=== PATIENT | female | born 1950 | race Caucasian/White ===

== ENCOUNTER 2018-03-28 06:15 | Day surgery (SDC) | payer MEDICARE, OTHER ==
[~2018-03-28] VITALS: Ht 162.6 cm; Wt 81.8 kg
[~2018-03-28 06:15] MED LIST: CYCLOBENZAPRINE10 MG PO; FISH OIL500 M1 PO; MELOXICAM15 MG PO; NORCO 5-325 TA1 EACH PO; WOMEN'S BIOMUL1 EACH PO
[2018-03-28] MEDS ORDERED: LEVOTHYROXINE50 MCG PO (06:37)
[2018-03-28] MEDS ORDERED: LISINOPRIL10 MG PO (06:37)
--- NOTE | 2018-03-28 08:19 | NUR ---
03/28/18 0819 Stacey Brand 0806- PT ARRIVES TO PACU ON 6L VIA MASK. OXYGEN SAT HIGH 90'S TO 100% ON THIS. PT IS ALERT AND ANSWER QUESTIONS APPROPRIATELY. PT IS DROWSY AND FALLS BACK TO SLEEP INSTANTLY WHEN NOT BEING TALKED TO. 0808- OXYGEN TURNED OFF. OXYGEN SAT MID TO HIGH 90'S ON RA. 0816- PT TURNED HERSELF TO HER BACK. PT REPORTS NO NAUSEA, PAIN, OR DIZZINESS.
--- NOTE | 2018-03-28 10:03 | OR ---
[facility] [address], [place] [address] Signed DATE OF OPERATION: 03/28/2018 SURGEON: Jodi Li MD PREOPERATIVE DIAGNOSIS: Maternal grandfather with colon cancer in his 80s. POSTOPERATIVE DIAGNOSES: 1. 4 mm polyps in distal right colon x1, 65 cm x1, 8 cm x4, and anus/6 cm x 1. 2. Minimal sigmoid diverticulosis. 3. [id number] internal hemorrhoids. PROCEDURE: Colonoscopy with hot biopsy. ESTIMATED BLOOD LOSS: None. INDICATIONS: Manolo is a 67-year-old lady who was asked to see me for her initial colonoscopy. She has no lower GI complaints. Her maternal grandfather developed colon cancer and of his colon cancer in his 80s. I gave Manolo a pamphlet in the office on colonoscopy. We looked at that together along with the risks including, but not limited to gas, bloating, crampy abdominal pain, bleeding, perforation, requiring surgery, and missed diagnosis. We also discussed the need for IV conscious sedation. She had expressed understanding and wished to proceed. PROCEDURE NOTE: Manolo was taken into our endoscopy suite and placed in the left lateral decubitus position. She was given 7 mg of Versed and 150 mcg of fentanyl. A digital rectal exam was performed and this was unremarkable. The adult colonoscope was introduced and advanced all the way around into the cecum under direct visualization of camera without difficulty. Her prep was overall good. However, there were a couple of areas of liquid particulate stool matter that I could not quite suction out completely. The scope was then slowly withdrawn. The above-mentioned polyps were easily removed with a hot biopsy forceps. We also saw some diverticula in the sigmoid colon. There has been minimal to moderate in size and minimal to moderate in number, and scattered about. Once in the rectum, the scope was then retroflexed and she does have some minimal internal hemorrhoid tissue. After this, the gas was suctioned out and the colonoscope removed. Manolo tolerated the procedure quite well. Electronically Signed By: JODI LI MD 03/28/18 1003 PATIENT NAME: MANOLO DIMAS OPERATIVE REPORT DATE OF : 54 REPORT #: [id number] PHYSICIAN: JODI LI MD PCP: VIMAL SOLIMAN MD REPORT IS CONFIDENTIAL AND NOT TO BE RELEASED WITHOUT AUTHORIZATION [address] [address] Signed RECOMMENDATIONS: I will see Manloo back in my office in 7 to 14 days to review her results. I suspect because of her family history, she will come every 5 years. Jodi Li MD ALB/YANIRAL /[id number] cc: MD Jodi Harden MD Copies: JODI LI MD ~ Electronically Signed By: JODI LI MD 03/28/18 1003 PATIENT NAME: MANOLO DIMAS OPERATIVE REPORT DATE OF : 54 REPORT #: [id number] PHYSICIAN: JODI LI MD PCP: VIMAL SOLIMAN MD REPORT IS CONFIDENTIAL AND NOT TO BE RELEASED WITHOUT AUTHORIZATION
--- NOTE | 2018-03-28 13:46 | NUR ---
PT CONTACTED AND NOTIFIED TO NOT TAKE MELOXICAM FOR [address] LI'S INSTRUCTIONS. PT STATES UNDERSTANDING AND AGREEABLE TO THIS.
== END 2018-03-28 08:50 | disposition home or self-care (01) ==
LOC: DS 06:15
PROVIDERS: Colon & Rectal Surgery
PROC: 0DBE8ZZ Excision of Large Intestine, Via Natural or Artificial Opening Endoscopic (ICD-10-PCS; 2018-03-28)
PROC: 0DBP8ZZ Excision of Rectum, Via Natural or Artificial Opening Endoscopic (ICD-10-PCS; 2018-03-28)
PROC: 0DBF8ZZ Excision of Right Large Intestine, Via Natural or Artificial Opening Endoscopic (ICD-10-PCS; principal; 2018-03-28 06:45)
DX: Z12.11 Encounter for screening for malignant neoplasm of colon (principal); K63.5 Polyp of colon; K64.8 Other hemorrhoids; K57.30 Diverticulosis of large intestine without perforation or abscess without bleeding; K62.0 Anal polyp; F17.210 Nicotine dependence, cigarettes, uncomplicated; I10 Essential (primary) hypertension; M19.90 Unspecified osteoarthritis, unspecified site; Z80.0 Family history of malignant neoplasm of digestive organs; Z79.1 Long term (current) use of non-steroidal anti-inflammatories (NSAID); Z79.899 Other long term (current) drug therapy
CPT/HCPCS: 99153; G0500; J2250; J3010; J7120

== ENCOUNTER 2024-06-03 09:38 | Observation (INO) | payer MEDICARE, OTHER ==
[~2024-06-03] VITALS: Ht 162.6 cm; Wt 89.0 kg
[~2024-06-03 09:38] MED LIST changes: +LEVOTHYROXINE50 MCG PO; +LISINOPRIL10 MG PO
[2024-06-03] MEDS ORDERED: SODIUM CHLORIDE 0.9% 500 ML IV PRN ×2 (10:00→10:30)
[2024-06-03 10:08] LABS: HEMATOCRIT 37.2 % (35.0-50.0); HEMOGLOBIN 12.8 g/dL (12.0-18.0); MCH 31.2 (27-36); MCHC 34.4 g/dl (30-36); MCV 90.8 fl (81-99); PLATELET COUNT 233 K/uL (140-440); RDW 13.6 (10.5-15.0)
[2024-06-03 10:27] LABS: ALBUMIN 2.8 g/dL (3.4-5.0); ALBUMIN/GLOBULIN RATIO 0.61 (1.1-2.4); ANION GAP 19.5 (7-21); BILIRUBIN, TOTAL 0.8 ng/dL (0.2-1.0); BUN/CREATININE RATIO 17.8 (6.0-28.6); CALCIUM 9.5 mg/dL (8.5-10.1); CREATININE, SERUM 3.82 mg/dL (0.55-1.02); POTASSIUM 3.5 mmol/L (3.5-5.1); PROTEIN, TOTAL 7.4 g/dL (6.4-8.2)
[2024-06-03] MEDS ORDERED: CEFTRIAXONE/SODIUM CHLORIDE 2 GM/100 ML PIGGYBACK IV ONE (10:30)
[2024-06-03 10:31] LABS: LYMPHOCYTES, MANUAL DIFF 12; MONOCYTES, MANUAL DIFF 6; NEUTROPHILS, MANUAL DIFF 82
[2024-06-03 10:46] LABS: INFLUENZA B NAA NEGATIVE (NEGATIVE); RESPIRATORY SYNCYTIAL VIR NAA NEGATIVE (NEGATIVE)
[2024-06-03] MEDS ORDERED: SODIUM CHLORIDE 0.9% 1,000 ML IV ONE (11:15)
[2024-06-03] MEDS ORDERED: LACTATED RINGER'S 1,000 ML IV SCH (12:45)
[2024-06-03] MEDS ORDERED: bisacodyL 10 MG SUPP PR PRN (12:45)
[2024-06-03] MEDS ORDERED: ACETAMINOPHEN 325 MG TAB PO PRN (12:45)
[2024-06-03] MEDS ORDERED: ondansetron HCL 4 MG/2 ML VIAL IV PRN (12:45)
[2024-06-03] MEDS ORDERED: AZITHROMYCIN 250 MG TAB PO SCH (12:51)
[2024-06-03 13:28] VITALS: BP 105/62
[2024-06-03] MEDS ORDERED: LISINOPRIL40 MG PO (14:06)
[2024-06-03] MEDS ORDERED: ATORVASTATIN CA10 MG PO (14:06)
[2024-06-03] MEDS ORDERED: LEVOTHYROXINE75 MCG PO (14:07)
[2024-06-03 14:19] LABS: BILIRUBIN, URINE NEGATIVE (negative); BLOOD/HGB, URINE LARGE (Negative); KETONE, URINE NEGATIVE (Negative); LEUK ESTERASE, URINE LARGE (negative); NITRITE, URINE POSITIVE (negative); PH, URINE 5.5 (5-7)
[2024-06-03 14:27] LABS: WHITE BLOOD CELLS, URINE >50 /HPF (0-5)
[2024-06-03 14:28] LABS: BACTERIA, URINE 1+ /hpf (negative); CASTS, URINE NONE SEEN \\lpf; CRYSTALS, URINE NONE SEEN (0-1+); EPITHELIAL CELLS, URINE SQUAMOUS 3+ /lpf (0-1+)
[2024-06-03 14:29] LABS: COLLECTION TYPE, URINE CLEAN CATCH; REFLEX CULTURE, URINE No (No)
--- NOTE | 2024-06-03 14:36 | NUR ---
PT ARRIVES TO MED-SURG ROOM 122 AT 1319. VERBAL REPORT RECEIVED FROM JOANNA Kirby RN. PT AMBULATES FROM STRETCHER TO BED WITH STEADY GAIT. VSS. PT ON RA, SATS 97%, DENIES SOB. HISTORY AND PHYSICAL ASSESSMENT COMPLETE. UA COLLECTED AND SENT TO LAB. PT ORIENTED TO ROOM, CALL LIGHT, TV, BED AND PHONE. NO FURTHER REQUESTS AT THIS TIME.
[2024-06-03] MEDS ORDERED: PREVACID 24HR15 MG PO (16:13)
--- NOTE | 2024-06-03 16:14 | NUR ---
MED REC COMPLETE
[2024-06-03] MEDS ORDERED: ATORVASTATIN 10 MG TAB PO SCH (17:00)
[2024-06-03 19:05] VITALS: BP 126/52
--- NOTE | 2024-06-03 19:06 | NUR ---
PATIENT IN BED AT THIS TIME. STABLE CLEANER CHARTED VITALS AND I&O'S. CALL LIGHT WITHIN REACH, NO FURTHER NEEDS AT THIS TIME.
--- NOTE | 2024-06-03 19:34 | NUR ---
REPORT RECIEVED FROM DAY SHIFT RN. PATIENT RESTING IN BED ON BACK WITH EYES CLOSED. RESPIRATIONS EVEN AND UNLABORED. CALL LIGHT IN REACH.
--- NOTE | 2024-06-03 20:05 | NUR ---
URINE SAMPLE COLLECTED AND SENT TO LAB.
[2024-06-03 20:09] VITALS: BP 106/42
[2024-06-03 20:38] VITALS: BP 106/42
--- NOTE | 2024-06-03 20:55 | NUR ---
PATIENT RESTING IN BED. ASSESSMENT COMPLETE. BOWEL TONES ACTIVE. SCHEDULED MEDICATION ADMINISTERED. PATIENT STATES SHE FEELS A LITTLE BETTER AFTER BEING MORE HYDRATED FROM THE IV FLUID. BOTH IVs FLUSH WNL. PATIENT EDUCATED TO ROOM AND CALL LIGHT. PATIENT VERBLIZES UNDERSTANDING. PATIENT HAS NO FURTHER NEEDS AT THIS TIME. CALL LIGHT IN REACH.
[2024-06-03] MEDS ORDERED: MELATONIN 3 MG TAB PO PRN (21:00)
[2024-06-03] MEDS ORDERED: HEParin SOD (PORCINE) 5,000 UNIT/ML SDV SUB-Q SCH (21:00)
--- NOTE | 2024-06-03 22:52 | NUR ---
PATIENT RESTING IN BED ON BACK WITH EYES CLOSED. RESPIRATIONS EVEN AND UNLABORED. CALL LIGHT IN REACH.
[2024-06-04 00:53] VITALS: BP 130/65
--- NOTE | 2024-06-04 00:57 | NUR ---
CALL LIGHT ANSWERED. PATIENT UP TO BATHROOM WITH MINIMAL SBA TO VOID. PATIENT BACK TO BED. VS AND I&Os OBTAINED AND RECORDED. PATIENT HAS NO FURTHER NEEDS. CALL LIGHT IN REACH.
[2024-06-04 01:07] VITALS: BP 130/65
[2024-06-04 01:54] LABS: BILIRUBIN, URINE NEGATIVE (negative); BLOOD/HGB, URINE LARGE (Negative); KETONE, URINE NEGATIVE (Negative); LEUK ESTERASE, URINE SMALL (negative); NITRITE, URINE NEGATIVE (negative); PH, URINE 5.5 (5-7)
[2024-06-04 01:58] LABS: EPITHELIAL CELLS, URINE SQUAMOUS 1+ /lpf (0-1+)
[2024-06-04 01:59] LABS: BACTERIA, URINE 1+ /hpf (negative); CASTS, URINE NONE SEEN \\lpf; COLLECTION TYPE, URINE CLEAN CATCH; CRYSTALS, URINE NONE SEEN (0-1+); REFLEX CULTURE, URINE Yes (No); WHITE BLOOD CELLS, URINE >50 /HPF (0-5)
--- NOTE | 2024-06-04 02:54 | NUR ---
CALL LIGHT ANSWERED. PATIENT UP TO BATHROOM WITH MINIMAL SBA TO VOID. PATIENT BACK TO BED. PATIENT REQUESTING PRN MEDICATION FOR R SHOULDER "ARTHRITIS PAIN". NO FURTHER NEEDS. CALL LIGHT IN REACH.
[2024-06-04 05:36] LABS: HEMOGLOBIN 11.3 g/dL (12.0-18.0); MCH 30.5 (27-36); MCHC 33.1 g/dl (30-36); MCV 92.1 fl (81-99); PLATELET COUNT 209 K/uL (140-440); RDW 13.6 (10.5-15.0)
[2024-06-04 05:38] VITALS: BP 125/62
[2024-06-04 05:39] VITALS: BP 125/62
--- NOTE | 2024-06-04 05:43 | NUR ---
CALL LIGHT ANSWERED. PATIENT UP TO BATHROOM WITH MINIMAL SBA. PATIENT BACK TO BED. VS AND I&Os OBTAINED AND RECORDED. SHEDULED MEDICATION ADMINISTERED. ICE CHIPS PROVIDED PER REQUEST. NO FURTHER NEEDS. CALL LIGHT IN REACH.
[2024-06-04 05:54] LABS: ANION GAP 11.6 (7-21); BANDS, MANUAL DIFF 2; BUN/CREATININE RATIO 25.14 (6.0-28.6); CALCIUM 8.8 mg/dL (8.5-10.1); CREATININE, SERUM 1.75 mg/dL (0.55-1.02); EOSINOPHILS, MANUAL DIFF 1; LYMPHOCYTES, MANUAL DIFF 13; MAGNESIUM 1.7 mg/dL (1.8-2.4); MONOCYTES, MANUAL DIFF 9; NEUTROPHILS, MANUAL DIFF 75; PHOSPHORUS, INORGANIC 3.1 mg/dL (2.5-4.9); POTASSIUM 3.6 mmol/L (3.5-5.1)
[2024-06-04] MEDS ORDERED: LEVOTHYROXINE SODIUM 75 MCG TAB PO SCH (07:00)
--- NOTE | 2024-06-04 07:08 | NUR ---
VERBAL REPORT RECEIVED FROM GARCIA HERNANDEZ. PT RESTS IN BED WITH EYES CLOSED, RESP EVEN AND UNLABORED.
[2024-06-04 07:30] LABS: PROCALCITONIN 27.5 ng/mL (())
--- NOTE | 2024-06-04 07:32 | NUR ---
UR CLINICAL REVIEW: 2 MN FOR VERSALUS-MEETS OBS CRITERIA FOR UTI MEDICARE OBS 06/03/24 @ 1250 ORDER MATCHES REG NO AUTH REQUIRED PER MEDICARE GUIDELINES DISCHARGE TO HOME IN 24 HOURS
[2024-06-04] MEDS ORDERED: TRIMETHOPRIM/SULFAMETHOXAZOLE 1 EA TAB PO SCH (09:00)
[2024-06-04] MEDS ORDERED: FLU VACC TS2024(65UP)/MF59C/PF 1 EACH SYR IM SCH (09:00)
[2024-06-04] MEDS ORDERED: MAGNESIUM SULFATE 2 GM/50 ML BAG IV ONE (09:00)
[2024-06-04 09:28] VITALS: BP 118/68
--- NOTE | 2024-06-04 10:11 | NUR ---
SBA to bathroom. Fresh ice water and sprite given.
--- NOTE | 2024-06-04 10:15 | NUR ---
ALERT AND ORIENTED, SITTING UP IN BED. STATES SHE LIVES IN HOME WITH HER DAUGHTER AND SON-IN-LAW. STATES SHE LIV[place] IN THE [place] SO SHE HAS HER OWN AREA. DOES STAIRS SLOWLY BUT HAS NO DIFFICULTY. NO DME. PATIENT DOES NOT DRIVE, UTILIZES [employer] FOR TRANSPORTATION. STATES RENT IS SPLIT. FAMILY [employer]BERS PAY UTILITIES. STATES SHE ABLE TO PAY FOR FOOD AND MEDICATIONS WITHOUT DIFFICULTY. DENIES ANY CM NEEDS AT THIS TIME.
[2024-06-04] MEDS ORDERED: SULFAMETHOXAZO1 EAC1 PO (10:36)
--- NOTE | 2024-06-04 10:41 | NUR ---
PATIENT STATES SHE ALREADY HAS HER FOLLOW-UP APPOINTMENT SCHEDULED.
--- NOTE | 2024-06-04 10:51 | NUR ---
Patient was offered a shower before discharge. They refused, stating they would prefer to shower at home.
[2024-06-04] MEDS ORDERED: FLU VACC TS2024(65UP)/MF59C/PF 1 EACH SYR ONE (11:10)
--- NOTE | 2024-06-04 11:40 | NUR ---
DISCUSSED DISCHARGE INSTRUCTIONS WITH PT, PT VERBALIZES UNDERSTANDING. IV X2 REMOVED FROM LAC AND RFA, TIPS INTACT. GAUZE AND COBAN DRESSING APPLIED TO EACH SITE. PT TOLERATED WELL. VSS. PT DRESSES SELF, LEAVES MED-SURG VIA WHEELCHAIR ESCORTED BY OSMAN Jeffries RN.
[2024-06-04] MEDS ORDERED: PHARMACY RENAL DOSE ADJUSTMENT 1 DOSE MISC PO SCH (12:00)
== END 2024-06-04 11:40 | disposition home or self-care (01) ==
LOC: ED 09:38 → MS 09:40
PROVIDERS: Emergency Medicine; ADMIT Student in an Organized Health Care Education/Training Program; ATTEND Student in an Organized Health Care Education/Training Program
DX: N39.0 Urinary tract infection, site not specified (principal); N17.9 Acute kidney failure, unspecified; E78.5 Hyperlipidemia, unspecified; K21.9 Gastro-esophageal reflux disease without esophagitis; E03.9 Hypothyroidism, unspecified; K76.0 Fatty (change of) liver, not elsewhere classified; F17.200 Nicotine dependence, unspecified, uncomplicated; Z79.899 Other long term (current) drug therapy
CPT/HCPCS: 36415; 71045; 74176; 80048; 80053; 81001; 83605; 83735; 84100; 85025; 87088; 87502; 90694; 96372; 96375; A9270; G0008; G0378; J0696; J1644; J3475; J7030; J7040; J7121; U0002

== ENCOUNTER 2025-05-09 09:33 | Emergency (ER) | payer MEDICARE, OTHER ==
[~2025-05-09] VITALS: Ht 162.6 cm; Wt 86.6 kg
[~2025-05-09 09:33] MED LIST changes: +ATORVASTATIN CA10 MG PO; +LEVOTHYROXINE75 MCG PO; +LISINOPRIL40 MG PO; +PREVACID 24HR15 MG PO; +SULFAMETHOXAZO1 EAC1 PO
[2025-05-09 10:15] LABS: BASOPHILS 0.9 % (0.1-1.2); EOSINOPHILS 3.2 % (0.7-5.8); LYMPHOCYTES 36.4 % (19.3-51.7); MCH 29.8 PG (25.6-32.2); MCHC 32.0 g/dL (32.2-35.5); MCV 93.2 fL (79.4-94.8); MONOCYTES 13.9 % (4.7-12.5); NEUTROPHILS 45.4 % (34.0-71.1); RBC 4.73 M/uL (3.93-5.22)
[2025-05-09] MEDS ORDERED: SODIUM CHLORIDE 0.9% 1,000 ML IV PRN ×3 (10:15→14:00)
[2025-05-09 10:35] LABS: INR 1.04 (0.80-1.30); PROTIME 13.2 Sec (11.2-14.2)
[2025-05-09 10:39] LABS: ALT (SGPT) 52.0 U/L (14-59); AST (SGOT) 61.0 U/L (15-37); GLOMERULAR FILTRATION RATE,EST 32.0 mL/min (>60); PROTEIN, TOTAL 7.3 g/dL (6.4-8.2); UREA NITROGEN 14.0 mg/dL (7-18)
[2025-05-09 10:44] LABS: LACTIC ACID, BLOOD 2.9 mmol/L (0.4-2.0)
[2025-05-09 12:33] LABS: BLOOD/HGB, URINE MODERATE (Negative); KETONE, URINE NEGATIVE (Negative); LEUK ESTERASE, URINE MODERATE (negative); NITRITE, URINE NEGATIVE (negative)
[2025-05-09 12:38] LABS: BACTERIA, URINE 4+ /hpf (negative); CASTS, URINE NONE SEEN \\lpf; CRYSTALS, URINE NONE SEEN (0-1+); EPITHELIAL CELLS, URINE 0 /lpf (0-1+); REFLEX CULTURE, URINE Yes (No)
[2025-05-09] MEDS ORDERED: CEPHALEXIN500 MG PO (18:01)
[2025-05-09 18:11] VITALS: BP 129/58
--- NOTE | 2025-05-11 23:06 | EKG ---
[facility] [address] [facility] [place] [address] Signed Normal sinus rhythm Nonspecific ST and T wave abnormality Abnormal ECG No previous ECGs available Confirmed by Debbi Hartley MD () on 05/11/2025 11:06:03 PM Electronically Signed By: DEBBI HARTLEY MD 05/11/25 2306 PATIENT NAME: FABIAN DIMAS Electrocardiogram DATE OF : 54 PHYSICIAN: DEBBI HARTLEY MD REPORT #: [id number] REPORT IS CONFIDENTIAL AND NOT TO BE RELEASED WITHOUT AUTHORIZATION
--- NOTE | 2025-05-11 23:12 | EKG ---
[facility] [address] [facility] [place] [address] Signed Normal sinus rhythm Nonspecific ST and T wave abnormality Prolonged QT Abnormal ECG When compared with ECG of 09-MAY-2025 10:15, No significant change was found Confirmed by Debbi Hartley MD () on 05/11/2025 11:12:21 PM Electronically Signed By: DEBBI HARTLEY MD 05/11/25 2312 PATIENT NAME: FABIAN DIMAS Electrocardiogram DATE OF : 54 PHYSICIAN: DEBBI HARTLEY MD REPORT #: [id number] REPORT IS CONFIDENTIAL AND NOT TO BE RELEASED WITHOUT AUTHORIZATION
[2025-05-27] MEDS ORDERED: ST. JOSEPH ASPI81 MG PO (14:01)
[2025-05-27] MEDS ORDERED: VITAMIN B COMP1 EACH PO (14:02)
[2025-05-27] MEDS ORDERED: CRANBERRY200 MG PO (14:02)
== END 2025-05-09 18:11 | disposition home or self-care (01) ==
LOC: ED 09:33
PROVIDERS: Emergency Medicine
PROC: 0T9B70Z Drainage of Bladder with Drainage Device, Via Natural or Artificial Opening (ICD-10-PCS; principal; 2025-05-09)
DX: A41.9 Sepsis, unspecified organism (principal); N39.0 Urinary tract infection, site not specified; M19.90 Unspecified osteoarthritis, unspecified site; F17.200 Nicotine dependence, unspecified, uncomplicated; Z88.2 Allergy status to sulfonamides; Z79.899 Other long term (current) drug therapy
CPT/HCPCS: 36415; 51701; 80053; 81001; 83605; 84484; 85025; 85610; 87077; 87088; 87186; 93005; 93010; 94799; 96361; 96365; 99285-25; J0696; J7030